=== PATIENT | male | born 1990 | race Caucasian/White ===

== ENCOUNTER 2024-03-20 23:29 | Emergency (ER) | payer OTHER, SELFPAY ==
[2024-03-20 23:32] VITALS: BP 143/81; BMI 21.1
--- NOTE | 2024-03-21 01:09 | ED.GENMED ---
History of Present Illness
<David Howard MD - Last Filed: 03/21/24 03:11>
General
Chief Complaint: Withdrawal Symptoms
Source: patient
Exam Limitations: none
Time Seen by Provider: 03/21/24 00:15
Nursing documentation reviewed up to this point in time: agreed with
History of Present Illness
History of Present Illness:
Patient presents to ED from [facility] for evaluation secondary to potential withdrawal from recent use of fentanyl and benzodiazepine. Upon arrival to ED, patient is complaining of diffuse abdominal pain with vomiting
episodes, as well as 'shaking' over the past 24hrs. Denies fever. Denies chest pain. Patient states that he has had withdrawal symptoms in the past, but never this severe.
Review of Systems
<David Hoawrd MD - Last Filed: 03/21/24 03:11>
Review of Systems
Allergies reviewed?: Yes
All Other Systems: ROS reviewed and negative except as documented in HPI and ROS
Constitutional: Reports no symptoms
EENT: Reports no symptoms
Respiratory: Reports no symptoms
Cardiac: Reports no symptoms
ABD/GI: Reports abdominal pain, nausea and vomiting
Musculoskeletal: Reports no symptoms
Skin: Reports no symptoms
Neurological: Reports other (Tremor)
Phy Exam
<David Howard MD - Last Filed: 03/21/24 03:11>
Physical Exam
Physical Exam:
Physical Exam
General: mild distress, acutely ill. afebrile. tachycardic. tremulous.
Head: nc/at. eomi
Neck: supple. no meningeal signs.
Heart: tachycardic, no murmur. equal radial pulses.
Lungs: no acute respiratory distress. clear bilaterally
Abdomen: normal bowel sounds. not tender.
Neuro: alert and oriented. no focal neurological deficits
Skin: no rash
Psychiatric: well kept. interactive and cooperative
Extremities: no edema. no calf tenderness.
Course
<David Howard MD - Last Filed: 03/21/24 03:11>
Orders/Labs/Results
Orders:
Orders
03/21/24 01:08
0.9% Sodium Chloride 500 ml [Nss] 500 ml IV BOLUS
Lorazepam [Ativan] 1 mg IV NOW STA
Pantoprazole [Protonix IV] 40 mg IV NOW STA
03/21/24 01:50
Lorazepam [Ativan] 2 mg .ROUTE .STK-MED ONE
03/21/24 01:56
Lorazepam [Ativan] 1 mg IV NOW STA
03/21/24 02:30
Lorazepam [Ativan] 1 mg IV NOW STA
03/21/24 02:43
Complete Blood Count/With Diff Urgent
Comprehensive Metabolic Panel Urgent
Magnesium Urgent
03/21/24 03:15
CT Abd/pelvis W Iv Cont Urgent
Comment:
Reason For Exam: diffuse abdominal pain
03/21/24 04:53
Buprenorphine [Subutex] 4 mg SL NOW ONE
03/21/24 05:49
0.9% Sodium Chloride 1000 ml [Nss] 1,000 ml IV BOLUS
03/21/24 05:56
Fentanyl, Urine Urgent
Urine Drug Abuse Screen Urgent
Date Specimen was Collected: 03/21/24
Time Specimen was Collected: 05:53
Abnormal Lab Results
03/21/24 03/21/24
02:43 05:56
WBC 19.9 H 10^3/uL
(4.8-10.8)
Plt Count 426 H 10^3/uL
(130-400)
MPV 10.7 H fL
(7.4-10.4)
Abs Immat Gran (auto) 0.1 H 10^3/uL
(0-0.05)
Absolute Neuts (auto) 17.0 H 10^3/uL
(1.4-6.5)
Absolute Lymphs (auto) 1.1 L 10^3/uL
(1.2-3.4)
Absolute Monos (auto) 1.7 H 10^3/uL
(0.1-0.6)
Neutrophils % 85.4 H %
(42.2-75.2)
Lymphocytes % 5.5 L %
(20.5-51.1)
Sodium 150 H mmol/L
(135-145)
BUN 29 H mg/dl
(9-20)
Creatinine 0.6 L mg/dL
(0.7-1.3)
Glucose 120 H mg/dl
(70-99)
Calcium 10.7 H mg/dl
(8.4-10.2)
Total Protein 9.1 H g/dl
(6.3-8.2)
Albumin 5.2 H g/dl
(3.5-5.0)
Urine Opiates Screen Positive H
(Negative)
Ur Buprenorphine Positive H
(Negative)
U Benzodiazepines Scrn Positive H
(Negative)
Urine Cocaine Screen Positive H
(Negative)
03/21/24 02:43
03/21/24 02:43
Vital Signs
Initial and Last Documented VS:
Initial Vital Signs
Temp Pulse Resp BP Pulse Ox
98.2 F 111 20 143/81 98
03/20/24 23:32 03/20/24 23:32 03/20/24 23:32 03/20/24 23:32 03/20/24 23:32
Last Documented Vital Signs
Temp Pulse Resp BP Pulse Ox
98.2 F 142 36 167/121 98
03/20/24 23:32 03/21/24 05:30 03/21/24 05:30 03/21/24 05:05 03/21/24 02:48
<Jacquelinejorge Man, DO - Last Filed: 03/21/24 06:38>
Orders/Labs/Results
Orders:
Orders
03/21/24 01:08
0.9% Sodium Chloride 500 ml [Nss] 500 ml IV BOLUS
Lorazepam [Ativan] 1 mg IV NOW STA
Pantoprazole [Protonix IV] 40 mg IV NOW STA
03/21/24 01:50
Lorazepam [Ativan] 2 mg .ROUTE .STK-MED ONE
03/21/24 01:56
Lorazepam [Ativan] 1 mg IV NOW STA
03/21/24 02:30
Lorazepam [Ativan] 1 mg IV NOW STA
03/21/24 02:43
Complete Blood Count/With Diff Urgent
Comprehensive Metabolic Panel Urgent
Magnesium Urgent
03/21/24 03:15
CT Abd/pelvis W Iv Cont Urgent
Comment:
Reason For Exam: diffuse abdominal pain
03/21/24 04:53
Buprenorphine [Subutex] 4 mg SL NOW ONE
03/21/24 05:49
0.9% Sodium Chloride 1000 ml [Nss] 1,000 ml IV BOLUS
03/21/24 05:56
Fentanyl, Urine Urgent
Urine Drug Abuse Screen Urgent
Date Specimen was Collected: 03/21/24
Time Specimen was Collected: 05:53
Abnormal Lab Results
03/21/24 03/21/24
02:43 05:56
WBC 19.9 H 10^3/uL
(4.8-10.8)
Plt Count 426 H 10^3/uL
(130-400)
MPV 10.7 H fL
(7.4-10.4)
Abs Immat Gran (auto) 0.1 H 10^3/uL
(0-0.05)
Absolute Neuts (auto) 17.0 H 10^3/uL
(1.4-6.5)
Absolute Lymphs (auto) 1.1 L 10^3/uL
(1.2-3.4)
Absolute Monos (auto) 1.7 H 10^3/uL
(0.1-0.6)
Neutrophils % 85.4 H %
(42.2-75.2)
Lymphocytes % 5.5 L %
(20.5-51.1)
Sodium 150 H mmol/L
(135-145)
BUN 29 H mg/dl
(9-20)
Creatinine 0.6 L mg/dL
(0.7-1.3)
Glucose 120 H mg/dl
(70-99)
Calcium 10.7 H mg/dl
(8.4-10.2)
Total Protein 9.1 H g/dl
(6.3-8.2)
Albumin 5.2 H g/dl
(3.5-5.0)
Urine Opiates Screen Positive H
(Negative)
Ur Buprenorphine Positive H
(Negative)
U Benzodiazepines Scrn Positive H
(Negative)
Urine Cocaine Screen Positive H
(Negative)
03/21/24 02:43
03/21/24 02:43
Vital Signs
Initial and Last Documented VS:
Initial Vital Signs
Temp Pulse Resp BP Pulse Ox
98.2 F 111 20 143/81 98
03/20/24 23:32 03/20/24 23:32 03/20/24 23:32 03/20/24 23:32 03/20/24 23:32
Last Documented Vital Signs
Temp Pulse Resp BP Pulse Ox
98.2 F 142 36 167/121 98
03/20/24 23:32 03/21/24 05:30 03/21/24 05:30 03/21/24 05:05 03/21/24 02:48
<David Howard MD - Last Filed: 03/21/24 03:11>
MDM/Problems Addressed
MDM/Problems Addressed:
History and exam concerning for likely withdrawal symptoms. However, in light of patient's continual abdominal discomfort as well as leukocytosis, decision made to obtain CT abdomen pelvis. In addition, patient will be given additional symptomatic
support with IV fluids and Ativan, as needed.
<Jacqueline Man DO - Last Filed: 03/21/24 06:38>
*Radiology
Radiology exam reviewed: radiology read reviewed (CT abdomen pelvis is unremarkable)
*Pulse Oximetry
Patient hypoxic: no
*Dry Plasterer Helper Interpretation
Rate: tachycardiac
Interpretation: abnormal
Rhythm: sinus
*Critical Care Note
Total Time (30-74mins, 75-104mins- exclusive of procedures): Not Applicable
<Jacqueline Man DO - Last Filed: 03/21/24 06:38>
Update Note
Update Note:
03/21/[address] abdomen pelvis is unremarkable. No acute intra-abdominal pathology.
Patient continues with mild resting sinus tachycardia but is much less anxious/agitated after a dose of Subutex 8 mg.
He has had no vomiting, no diarrhea and remains hemodynamically stable.
Will discharge back to senior care to continue opioid withdrawal regimen as already initiated.
ED Attending Note
<David Howard MD - Last Filed: 03/21/24 03:11>
-
Portions of this chart may have been created with voice recognition software.� Occasional wrong word or��sound alike� substitutions may have occurred due to the inherent limitations of voice recognition software.
Discharge Plan
Departure
Patient Disposition: Shelter
Date of Disposition: 03/21/24
Time of Disposition: 06:32
Condition: Fair
Discharge Problem:
Opioid abuse with withdrawal
Instructions: Polysubstance Use Disorder (DC), Drug Withdrawal ED
Prescriptions:
No Action
clonidine HCl 0.1 mg Tablet
0.05 mg PO BID
ondansetron HCl [Zofran] 4 mg Tablet
4 mg PO Q8H PRN (Reason: nausea)
clonazepam 0.5 mg Tablet
0.5 mg PO HS
clonazepam 0.5 mg Tablet
0.5 mg PO BID
buprenorphine HCl [Subutex] 2 mg Tablet, Sublingual
2 mg SUBLINGUAL DAILY
buprenorphine HCl [Subutex] 2 mg Tablet, Sublingual
4 mg SUBLINGUAL DAILY
Referrals:
UNKNOWN - PT DOES,NOT KNOW [Family Provider] -
Activity Restrictions/Additional Instructions:
Continue opioid withdrawal protocol as already initiated.
CT abdomen pelvis is unremarkable.
Labs show elevated white blood cell count, hypernatremia and prerenal azotemia consistent with opioid withdrawal.
Interventions
Interventions:
*Risk Screen - Suicide Last Done: 03/20/24 23:32
*General Assessment Last Done: 03/20/24 23:32
*Neglect/Abuse Screening Last Done: 03/20/24 23:32
ED- Fall Risk Assessment Last Done: 03/21/24 00:42
*ED COVID-19 Vaccine History Last Done: 03/20/24 23:32
ED- Neurological Assessment Last Done: 03/21/24 00:42
ED-Psychological Assessment Last Done: 03/21/24 00:42
Discharge Date and Time
Print Language: CROATIAN
[2024-03-21] MEDS: ATIVAN 1 MG IV ×3 (01:51→02:48)
[2024-03-21] MEDS: NSS 500 IV (01:55)
[2024-03-21] MEDS: PROTONIX IV 40 MG IV (01:55)
--- NOTE | 2024-03-21 01:58 | EDRN ---
Patient was still agitated and all over the place in bed a second 1mg dose of Ativan given per Dr. Howard.
[2024-03-21 02:48] VITALS: BP 171/117
--- NOTE | 2024-03-21 02:48 | EDRN ---
Dr. Howard asking for blood sent and more Ativan patient is still very tachycardic and agitated, warm and diaphoretic as well.
[2024-03-21 02:51] LABS: % Basophils 0.1 % (0-2); % Immature Granulocytes 0.4 % (0-0.5); % Lymphocytes 5.5 % (20.5-51.1); % Monocytes 8.6 % (1.7-9.3); % Neutrophils 85.4 % (42.2-75.2); Absolute Immature Granulocytes 0.1 10^3/uL (0-0.05); Absolute Lymphocytes 1.1 10^3/uL (1.2-3.4); Absolute Monocytes 1.7 10^3/uL (0.1-0.6); Hematocrit 45.9 % (39.0-52.0); Hemoglobin 16.1 g/dL (13.0-18.0); Mean Corp Hgb Conc. 35.1 g/dL (33.0-37.0); Mean Corpuscular Hgb 29.3 pg (27.0-31.0); Mean Corpuscular Volume 83.6 fL (80.0-94.0); Mean Platelet Volume 10.7 fL (7.4-10.4); Nucleated Red Blood Cells % 0 % (-); Platelet Count 426 10^3/uL (130-400); Red Blood Cell Count 5.49 10^6/uL (4.70-6.10); Red Cell Dist. Width 13.2 % (11.5-14.5); White Blood Cell Count 19.9 10^3/uL (4.8-10.8)
[2024-03-21 03:13] LABS: ALT (SGPT) 23 U/L (0-50); AST (SGOT) 27 U/L (17-59); Albumin 5.2 g/dl (3.5-5.0); Alkaline Phosphatase 96 U/L (38-126); Blood Urea Nitrogen 29 mg/dl (9-20); Calcium 10.7 mg/dl (8.4-10.2); Carbon Dioxide 28 mmol/L (22-30); Chloride 106 mmol/L (98-107); Estimated Creatinine Clearance > 125 ml/min; Glucose 120 mg/dl (70-99); Magnesium 2.2 mg/dl (1.6-2.3); Sodium 150 mmol/L (135-145); Total Bilirubin 1.1 mg/dl (0.2-1.3); Total Protein 9.1 g/dl (6.3-8.2); eGFR > 60.00
[2024-03-21] MEDS: SUBUTEX 4 MG SL (05:00)
[2024-03-21 05:05] VITALS: BP 167/121
--- NOTE | 2024-03-21 05:06 | EDRN ---
Patient tried to get up, stated he needed to use restroom, gave urinal to use
[2024-03-21] MEDS: NSS 1000 IV (05:54)
[2024-03-21 06:30] LABS: Amphetamines Negative (Negative); Barbiturates Negative (Negative); Benzodiazepines Positive (Negative); Buprenorphine Positive (Negative)
[2024-03-21 06:31] LABS: Cocaine Positive (Negative); Marijuana Negative (Negative); Methadone Negative (Negative); Methamphetamines Negative (Negative); Opiates Positive (Negative); Phencyclidine Negative (Negative); Tricyclic Antidepressants Negative (Negative)
[2024-03-21 06:43] LABS: Fentanyl, Urine Positive (Negative)
[2024-03-21 07:15] VITALS: BP 129/74
== END 2024-03-21 07:32 ==
LOC: EMR 23:29
PROVIDERS: Emergency Medicine; EMERGENCY PHYSICIAN Emergency Medicine
DX: F11.13 Opioid abuse with withdrawal (principal)
CPT/HCPCS: 99284; 96374; 96375; 96376; 96361; 74177; 80053; 80306; 80307; 83735; 85025; Q9967

== ENCOUNTER 2024-03-21 08:53 | Emergency (ER) | payer OTHER, SELFPAY ==
[2024-03-21] VITALS (20 sets, daily range): BP systolic 136–167; BP diastolic 85–133; BMI 23.5
[2024-03-21] MEDS: VISTARIL 25 MG IM (09:27)
[2024-03-21] MEDS: CATAPRES 0.200000000000000011 MG PO ×2 (09:27→13:10)
--- NOTE | 2024-03-21 09:53 | ED.GENMED ---
History of Present Illness
General
Chief Complaint: Withdrawal Symptoms
Source: patient, records and other ([place])
Exam Limitations: clinical condition
Time Seen by Provider: 03/21/24 09:13
Nursing documentation reviewed up to this point in time: agreed with
History of Present Illness
History of Present Illness:
Patient is a 33-year-old male from the present who was seen discharged at 530 after having Subutex, multiple doses of Ativan, fluids and a CT of the abdomen for what was diagnosed as acute withdrawal and is now returned because of elevated blood
pressure. Patient's last Subutex was at 5 AM today. Patient has limited IV access. Patient did receive 1000 mL of 0.9% sodium chloride. Patient CBC, CMP and magnesium done. CBC did show an elevated white count. CMP showed elevated BUN and
sodium. Patient's drug screen was positive for opiates, buprenorphine, fentanyl, benzodiazepines and cocaine
Review of Systems
Review of Systems
Unable to obtain full review of systems at this time due to: other (withdrawal)
Other source history: transfer record
All Other Systems: Not applicable
Phy Exam
Physical Exam
Physical Exam:
Physical Exam
General: moderate distress, alert to verbal stimuli, well nourished, dry mucous membranes
HENT: Normocephalic, supple with no lymphadenopathy, no thyromegaly
Eyes: Clear sclera, conjuctiva without injection
Heart: Regular rhythm and rate. No S3, S4. No murmur. No NVD
Lungs: No respiratory distress, no stridor, lung sounds clear and equal bilaterally, chest wall symmetrical and nontender
Abdomen: Soft, nontender, no organomegaly, no CVA tenderness, BS good
Neuro: Alert, CN II - XII intact, no motor focality
Skin: Multiple scabs on extremities
Extremities: No edema, cyanosis, tenderness
Course
Orders/Labs/Results
Orders:
Orders
03/21/24 08:56
EKG [Electrocardiogram (*1)] Urgent
Reason for Study: Tachycardia
03/21/24 08:57
EKG- Treatment ONCE
03/21/24 09:23
Clonidine [Catapres] 0.2 mg PO NOW STA
HydrOXYzine [Vistaril] 25 mg IM NOW STA
03/21/24 10:14
0.9% Sodium Chloride 1000 ml [Nss] 1,000 ml IV BOLUS
Buprenorphine [Subutex] 4 mg SL NOW ONE
Metoprolol [Lopressor] 5 mg IV NOW STA
03/21/24 11:10
Basic Metabolic Panel Urgent
03/21/24 12:05
Complete Blood Count/With Diff Urgent
03/21/24 12:51
Clonidine [Catapres] 0.2 mg PO NOW STA
03/21/24 13:00
0.9% Sodium Chloride 500 ml [Nss] 500 ml IV 200 mls/hr
Abnormal Lab Results
03/21/24 03/21/24
11:10 12:05
WBC 21.4 H 10^3/uL
(4.8-10.8)
Abs Immat Gran (auto) 0.1 H 10^3/uL
(0-0.05)
Absolute Neuts (auto) 17.4 H 10^3/uL
(1.4-6.5)
Absolute Monos (auto) 2.2 H 10^3/uL
(0.1-0.6)
Neutrophils % 81.2 H %
(42.2-75.2)
Lymphocytes % 7.8 L %
(20.5-51.1)
Monocytes % 10.3 H %
(1.7-9.3)
Sodium 147 H mmol/L
(135-145)
Chloride 109 H mmol/L
(98-107)
BUN 21 H mg/dl
(9-20)
Creatinine 0.6 L mg/dL
(0.7-1.3)
Glucose 103 H mg/dl
(70-99)
03/21/24 12:05
03/21/24 11:10
Vital Signs
Initial and Last Documented VS:
Initial Vital Signs
Temp Pulse Resp BP Pulse Ox
98.7 F 103 42 143/130 96
03/21/24 08:58 03/21/24 08:58 03/21/24 08:58 03/21/24 08:58 03/21/24 08:58
Last Documented Vital Signs
Temp Pulse Resp BP Pulse Ox
98.7 F 115 48 141/85 100
03/21/24 08:58 03/21/24 14:15 03/21/24 14:15 03/21/24 14:15 03/21/24 09:08
*Radiology
Radiology exam reviewed: other (reviewed results of CT abd earlier today)
*Pulse Oximetry
Patient hypoxic: no
*EKG
Interpreted by ED Provider?: Yes
EKG Intrepretation Date: 03/21/24
EKG Intrepretation Time: 15:20
Interpretation: abnormal
Comparison EKG: no comparison EKG present
Heart Rate: 93
Rate: normal
Rhythm: sinus
[place]: normal axis
Interval: normal [place] interval and long QT
QRS Pattern: normal QRS
Ischemia: non-specific ST changes
*Ex[employer] Cutter Interpretation
Rate: tachycardiac
Interpretation: abnormal
Heart Rate: 110
Rhythm: sinus
*Critical Care Note
Total Time (30-74mins, 75-104mins- exclusive of procedures): 45 minutes
Update Note
Update Note:
Patient's heart rate has come down as well as the blood pressure although still not ideal. However the withdrawal symptoms have greatly diminished. Patient has been sleeping. Patient has received fluids intravenously. Patient's weight has
diminished as has his BUN. Patient will be discharged.
ED Attending Note
-
Portions of this chart may have been created with voice recognition software.� Occasional wrong word or��sound alike� substitutions may have occurred due to the inherent limitations of voice recognition software.
Discharge Plan
Departure
Patient Disposition: [facility]
Date of Disposition: 03/21/24
Time of Disposition: 14:13
Patient with high blood pressure during this ER visit?: Yes
Condition: Fair
Covid-19: Not Applicable
Discharge Problem:
Opioid abuse with withdrawal, Dehydration
Instructions: Drug Misuse and Addiction (DC), Dehydration, Adult ED
Prescriptions:
New
clonidine HCl 0.2 mg tablet
0.2 mg PO TID Qty: 20 0RF
hydroxyzine pamoate [Vistaril] 25 mg capsule
25 mg PO QID PRN (Reason: nausea and vomiting) Qty: 20 0RF
No Action
clonidine HCl 0.1 mg Tablet
0.05 mg PO BID
ondansetron HCl [Zofran] 4 mg Tablet
4 mg PO Q8H PRN (Reason: nausea)
clonazepam 0.5 mg Tablet
0.5 mg PO HS
clonazepam 0.5 mg Tablet
0.5 mg PO BID
buprenorphine HCl [Subutex] 2 mg Tablet, Sublingual
2 mg SUBLINGUAL DAILY
buprenorphine HCl [Subutex] 2 mg Tablet, Sublingual
4 mg SUBLINGUAL DAILY
Referrals:
UNKNOWN - PT DOES,NOT KNOW [Family Provider] -
Interventions
Interventions:
*Risk Screen - Suicide Last Done: 03/21/24 08:58
*General Assessment Last Done: 03/21/24 08:58
*Neglect/Abuse Screening Last Done: 03/21/24 08:58
ED- Fall Risk Assessment Last Done: 03/21/24 09:11
*ED COVID-19 Vaccine History Last Done: 03/21/24 08:58
*Nursing Disposition Last Done: 03/21/24 14:40
ED- Neurological Assessment Last Done: 03/21/24 09:11
ED-Psychological Assessment Last Done: 03/21/24 09:11
Discharge Date and Time
Discharge Date/Time: 03/21/24 15:03
Print Language: EMIRATI
[2024-03-21] MEDS: SUBUTEX 4 MG SL (10:21)
[2024-03-21] MEDS: LOPRESSOR 5 MG IV (11:26)
[2024-03-21] MEDS: NSS 1000 IV (11:26)
[2024-03-21 11:36] LABS: Blood Urea Nitrogen 21 mg/dl (9-20); Calcium 9.9 mg/dl (8.4-10.2); Carbon Dioxide 28 mmol/L (22-30); Chloride 109 mmol/L (98-107); Estimated Creatinine Clearance > 125 ml/min; Glucose 103 mg/dl (70-99); Potassium 3.7 mmol/L (3.5-5.1); Sodium 147 mmol/L (135-145); eGFR > 60.00
[2024-03-21 12:14] LABS: % Basophils 0.2 % (0-2); % Immature Granulocytes 0.5 % (0-0.5); % Lymphocytes 7.8 % (20.5-51.1); % Monocytes 10.3 % (1.7-9.3); % Neutrophils 81.2 % (42.2-75.2); Absolute Basophils 0.1 10^3/uL (0-0.2); Absolute Immature Granulocytes 0.1 10^3/uL (0-0.05); Absolute Lymphocytes 1.7 10^3/uL (1.2-3.4); Absolute Monocytes 2.2 10^3/uL (0.1-0.6); Absolute Neutrophils 17.4 10^3/uL (1.4-6.5); Hematocrit 44.5 % (39.0-52.0); Hemoglobin 15.6 g/dL (13.0-18.0); Mean Corp Hgb Conc. 35.1 g/dL (33.0-37.0); Mean Corpuscular Hgb 29.4 pg (27.0-31.0); Mean Corpuscular Volume 83.8 fL (80.0-94.0); Mean Platelet Volume 9.4 fL (7.4-10.4); Nucleated Red Blood Cells % 0 % (-); Platelet Count 381 10^3/uL (130-400); Red Blood Cell Count 5.31 10^6/uL (4.70-6.10); Red Cell Dist. Width 13.4 % (11.5-14.5); White Blood Cell Count 21.4 10^3/uL (4.8-10.8)
[2024-03-21] MEDS: NSS 500 IV (13:14)
== END 2024-03-21 15:03 ==
LOC: EMR 08:53
PROVIDERS: EMERGENCY PHYSICIAN Emergency Medicine
DX: F11.13 Opioid abuse with withdrawal (principal); E86.0 Dehydration; R94.4 Abnormal results of kidney function studies
CPT/HCPCS: 99283; 80048; 85025; 93005